=== PATIENT | female | born 1950 | race Caucasian/White ===

== ENCOUNTER 2017-12-26 08:11 | Day surgery (SDC) | payer MEDICARE, OTHER, SELFPAY ==
[2017-12-23 12:05] VITALS: BMI 20.9
[2017-12-26] VITALS (12 sets, daily range): BP systolic 84–119; BP diastolic 45–69; PULSE 48–79; RESP 11–18; TEMP 36.4–36.7; O2SAT 95–100
--- NOTE | 2017-12-26 09:06 | SUR.PREOP ---
PT AMBULATED W/ASSIST TO BR, VOIDED W/OUT DIFF, CLEAR LIQUID STOOL
--- NOTE | 2017-12-26 10:31 | HMH.PROC ---
[facility] Procedure Note Procedure Note:: Colonoscopy Procedure Report: Colonoscopy with cold snare polypectomy Endoscopist: Sree Martel II, MD Referring physician: Abe Omer MD Date of Procedure: December 26, 2017 Equipment: Olympus 180 variable stiffness pediatric colonoscope Sedation: Fentanyl 200 mg IV/ Versed 9 mg IV Indication: Ms. Aguila is a 67 year-old female here for follow-up screening/surveillance colonoscopy. The patient does have a very strong family history of colon cancer. Her father had colon cancer at the age of 59. Her son had malignant polyps. Her paternal grandmother also had colon cancer. She had normal colon reason May 1999 and May 2004. She had a single small polyp (hyperplastic polyp removed in August 2009. The patient did have a colonoscopy 2012 at which time a cecal polyp (tubular adenoma ?1) was removed. The patient had recently had some left-sided abdominal pain and discomfort with bloating, gassiness and obstipation/incomplete defecation. She did initiate dietary measures (soft fiber) and fiber bowel regimen (MiraLAX plus Konsyl) and has significantly improved. She reports no rectal bleeding or weight loss. Procedure: Prior to the procedure, a history and physical exam was performed, and patient's medications and allergies were reviewed. The risks, benefits and alternatives of the sedation and procedure were discussed with the patient. All questions were answered and informed consent was obtained. The patient was brought to the procedure room. Patient identification and proposed procedure were verified by the physician and the nurse. The patient was placed in a left lateral decubitus position and the scope was passed under direct vision. Throughout the procedure, the patient's blood pressure, pulse, and oxygen saturations were monitored continuously. The colonoscopy was accomplished without difficulty. The patient tolerated the procedure well. Findings: On digital rectal examination there was normal rectal tone. There were no external hemorrhoids. The colonoscope was introduced through the anal canal to the rectum and advanced to the cecum. The ileocecal valve and appendiceal orifice were identified. The scope was advanced a short distance into the ileum which appeared grossly normal. The scope was then withdrawn into the colon. There were 3 colon polyps identified in the cecum ?2 and descending ?1. These ranged in size from 5-6 mm and were all removed via cold snare polypectomy. There were scattered diverticuli throughout the descending and sigmoid colon (LEFT colon). The rectum itself was normal. Upon retroflexion within the rectum there were grade 1 internal hemorrhoids. Impression: 1. Diminutive colonic polyps ?3 2. Mild left-sided diverticulosis 3. Grade 1 internal hemorrhoids Plan: I will follow up the polyp pathology and recommend repeat colonoscopy again in 5 years based upon the patient's family history and present polyp histology. I would encourage continuation of the dietary measures and fiber bowel regimen (MiraLAX plus Konsyl) on a long-term daily maintenance basis.
--- NOTE | 2017-12-26 11:02 | P.PCN_ITS ---
[facility] Procedure Note Procedure Note:: Colonoscopy Procedure Report: Colonoscopy with cold snare polypectomy Endoscopist: Sree Martel II, MD Referring physician: Abe Omer MD Date of Procedure: December 26, 2017 Equipment: Olympus 180 variable stiffness pediatric colonoscope Sedation: Fentanyl 200 mg IV/ Versed 9 mg IV Indication: Ms. Aguila is a 67 year-old female here for follow-up screening/ surveillance colonoscopy. The patient does have a very strong family history of colon cancer. Her father had colon cancer at the age of 59. Her son had malignant polyps. Her paternal grandmother also had colon cancer. She had normal colon reason May 1999 and May 2004. She had a single small polyp ( hyperplastic polyp removed in August 2009. The patient did have a colonoscopy 2012 at which time a cecal polyp (tubular adenoma ?1) was removed. The patient had recently had some left-sided abdominal pain and discomfort with bloating, gassiness and obstipation/incomplete defecation. She did initiate dietary measures (soft fiber) and fiber bowel regimen (MiraLAX plus Konsyl) and has significantly improved. She reports no rectal bleeding or weight loss. Procedure: Prior to the procedure, a history and physical exam was performed, and patient' s medications and allergies were reviewed. The risks, benefits and alternatives of the sedation and procedure were discussed with the patient. All questions were answered and informed consent was obtained. The patient was brought to the procedure room. Patient identification and proposed procedure were verified by the physician and the nurse. The patient was placed in a left lateral decubitus position and the scope was passed under direct vision. Throughout the procedure, the patient's blood pressure, pulse, and oxygen saturations were monitored continuously. The colonoscopy was accomplished without difficulty. The patient tolerated the procedure well. Findings: On digital rectal examination there was normal rectal tone. There were no external hemorrhoids. The colonoscope was introduced through the anal canal to the rectum and advanced to the cecum. The ileocecal valve and appendiceal orifice were identified. The scope was advanced a short distance into the ileum which appeared grossly normal. The scope was then withdrawn into the colon. There were 3 colon polyps identified in the cecum ?2 and descending ? 1. These ranged in size from 5-6 mm and were all removed via cold snare polypectomy. There were scattered diverticuli throughout the descending and sigmoid colon (LEFT colon). The rectum itself was normal. Upon retroflexion within the rectum there were grade 1 internal hemorrhoids. Impression: 1. Diminutive colonic polyps ?3 2. Mild left-sided diverticulosis 3. Grade 1 internal hemorrhoids Plan: I will follow up the polyp pathology and recommend repeat colonoscopy again in 5 years based upon the patient's family history and present polyp histology. I would encourage continuation of the dietary measures and fiber bowel regimen ( MiraLAX plus Konsyl) on a long-term daily maintenance basis.
== END 2017-12-26 11:55 | disposition home or self-care (01) ==
LOC: OUTP 08:14
PROVIDERS: PCP Internal Medicine; Visit Provider Internal Medicine Gastroenterology
PROC: 0DJD8ZZ Inspection of Lower Intestinal Tract, Via Natural or Artificial Opening Endoscopic (ICD-10-PCS; CPT 45378; principal; 2017-12-26 09:30)
DX: Z12.11 Encounter for screening for malignant neoplasm of colon (principal); K63.5 Polyp of colon; K57.30 Diverticulosis of large intestine without perforation or abscess without bleeding; K64.0 First degree hemorrhoids; Z80.0 Family history of malignant neoplasm of digestive organs; Z87.19 Personal history of other diseases of the digestive system
CPT/HCPCS: 45380; 88305; 99152; 99153

== ENCOUNTER → 2018-09-29 10:16 | Outpatient (POV) | payer MEDICARE, OTHER, SELFPAY | PROVIDERS: Visit Provider Dermatology | DX: Z00.00 Encounter for general adult medical examination without abnormal findings (principal) ==

== ENCOUNTER → 2019-04-27 10:13 | Outpatient (POV) | payer MEDICARE, OTHER, SELFPAY | PROVIDERS: Visit Provider Dermatology | DX: Z00.00 Encounter for general adult medical examination without abnormal findings (principal) ==

== ENCOUNTER → 2019-11-09 14:38 | Outpatient (POV) | payer MEDICARE, OTHER, SELFPAY | PROVIDERS: Visit Provider Dermatology | DX: Z00.00 Encounter for general adult medical examination without abnormal findings (principal) ==

== ENCOUNTER → 2019-11-22 13:12 | Outpatient (POV) | payer MEDICARE, OTHER, SELFPAY | PROVIDERS: Visit Provider Nurse Practitioner Family | DX: Z00.00 Encounter for general adult medical examination without abnormal findings (principal) ==

== ENCOUNTER → 2020-01-11 14:16 | Outpatient (POV) | payer MEDICARE, OTHER, SELFPAY | PROVIDERS: Visit Provider Dermatology | DX: Z00.00 Encounter for general adult medical examination without abnormal findings (principal) ==

== ENCOUNTER → 2020-06-27 10:37 | Outpatient (POV) | payer MEDICARE, OTHER, SELFPAY | PROVIDERS: PCP Dermatology; Visit Provider Dermatology | DX: Z00.00 Encounter for general adult medical examination without abnormal findings (principal) ==